=== PATIENT | male | born 1985 | race Two or more races ===

== ENCOUNTER 2023-03-26 10:22 | Emergency (ER) | payer SELFPAY ==
[2023-03-26 10:33] VITALS: BP 167/83; TEMP 98.6; BMI 32.8
[2023-03-26] MEDS ORDERED: HYDROCORTISONE ACETATE 25 MG/SUPP.RECT PR ONE (10:59)
[2023-03-26] MEDS ORDERED: HYDROCORTISONE 2.5% TOPICAL CREAM 30 GM TUBE TP SCH (11:00)
[2023-03-26 11:45] VITALS: PULSE 92; RESP 18
== END 2023-03-26 11:45 | disposition home or self-care (01) ==
LOC: JERFT 10:22
DX: K64.0 First degree hemorrhoids (principal)
CPT/HCPCS: 99282-25